=== PATIENT | female | born 1960 | race Caucasian/White ===

== ENCOUNTER 2018-01-31 19:48 | Emergency (ER) | payer OTHER ==
[~2018-01-31] VITALS: Ht 165.1 cm; Wt 62.8 kg
[2018-01-31 20:00] VITALS: BP 146/78
[2018-01-31] MEDS ORDERED: OXYMETAZOLINE NASAL SPRAY 0.05%, 15ML ONE (20:17)
[2018-01-31] MEDS ORDERED: OXYMETAZOLINE NASAL SPRAY 0.05%, 15ML NAS ONE (20:30)
[2018-01-31] MEDS ORDERED: SILVER NITRATE STICK TP ONE (21:04)
== END 2018-01-31 21:41 | disposition home or self-care (01) ==
LOC: ED 21:00
DX: R04.0 Epistaxis (principal); R09.81 Nasal congestion; I10 Essential (primary) hypertension
CPT/HCPCS: 30901; 99284